=== PATIENT | female | born 1950 | race African-American/Black ===

== ENCOUNTER 2018-04-21 09:20 | Day surgery (SDC) | payer OTHER, BC ==
[2018-04-21 09:51] VITALS: BMI 21.2
[2018-04-21] MEDS ORDERED: PROPOFOL 20 ML ONE ×2 (10:45)
[2018-04-21 13:25] VITALS: BP 113/72; PULSE 78; TEMP 97.8
--- NOTE | 2018-04-23 15:55 | PATH ---
Surgical Pathology Report Patient Name: DENA THEODORE [facility]. Rec. #: [id number] /Age/Gender: 1950 (Age: 68) / F Account: [id number] Location: [facility] Taken: 04/21/2018 Received: 04/21/2018 Reported: 04/23/2018 Physicians: Damian Cervantes M.D. Specimen(s) Received A: BX DUODENUM B: BX ANTRUM Clinical History Abdominal pain, weight loss Postoperative diagnosis: Rule out celiac disease, gastritis Final Diagnosis A. DUODENUM, BIOPSY: DUODENUM MUCOSA WITH NO SIGNIFICANT PATHOLOGIC FINDINGS. NO HISTOLOGIC EVIDENCE OF CELIAC DISEASE. B. ANTRUM, BIOPSY: GASTRIC MUCOSA WITH CHRONIC GASTRITIS. IMMUNOSTAINING IS NEGATIVE FOR H. PYLORI ORGANISMS. NEGATIVE FOR INTESTINAL METAPLASIA. Electronically Signed Park Howard M.D. Gross Description A. Received in formalin, labeled "duodenum" are 2 jc, irregular portions of soft tissue measuring 0.2 and 0.3 cm. in greatest dimension. The specimens are submitted in toto in one cassette. B. Received in formalin, labeled "antrum" are 2 jc, irregular portions of soft tissue measuring 0.3 and 0.5 cm. in greatest dimension. The specimens are submitted in toto in one cassette. 04/22/201804/22/2018
== END 2018-04-21 13:25 | disposition home or self-care (01) ==
LOC: FASU-ENDO 09:20
PROVIDERS: ATTEND Internal Medicine Gastroenterology
PROC: 0DB48ZX Excision of Esophagogastric Junction, Via Natural or Artificial Opening Endoscopic, Diagnostic (ICD-10-PCS; 2018-04-21)
PROC: 0DJD8ZZ Inspection of Lower Intestinal Tract, Via Natural or Artificial Opening Endoscopic (ICD-10-PCS; principal; 2018-04-21 12:06)
PROC: 0DB98ZX Excision of Duodenum, Via Natural or Artificial Opening Endoscopic, Diagnostic (ICD-10-PCS; 2018-04-21 12:06)
DX: Z12.11 Encounter for screening for malignant neoplasm of colon (principal); K57.30 Diverticulosis of large intestine without perforation or abscess without bleeding; K64.4 Residual hemorrhoidal skin tags; K29.50 Unspecified chronic gastritis without bleeding
CPT/HCPCS: 43239; G0121; 88305-TC; 88342-TC

== ENCOUNTER 2020-06-15 08:05 | Day surgery (SDC) | payer OTHER, BC ==
[2020-06-15] MEDS ORDERED: LIDOCAINE HCL/PF 2% SDV 5ML VIAL ONE ×2 (08:12→08:31)
[2020-06-15] MEDS ORDERED: PROPOFOL 20 ML ONE ×4 (08:13→08:31)
[2020-06-15 08:36] VITALS: TEMP 97.8; BMI 20.3
[2020-06-15 09:39] VITALS: PULSE 86
[2020-06-15 09:57] VITALS: BP 129/74
== END 2020-06-15 10:10 | disposition home or self-care (01) ==
LOC: FASU-ENDO 08:05
PROVIDERS: ATTEND Internal Medicine Gastroenterology
PROC: 0DB68ZX Excision of Stomach, Via Natural or Artificial Opening Endoscopic, Diagnostic (ICD-10-PCS; 2020-06-15)
PROC: 0DB98ZX Excision of Duodenum, Via Natural or Artificial Opening Endoscopic, Diagnostic (ICD-10-PCS; principal; 2020-06-15 09:03)
DX: K29.50 Unspecified chronic gastritis without bleeding (principal)
CPT/HCPCS: 88305-TC